=== PATIENT | male | born 1960 | race Asian ===

== ENCOUNTER 2020-05-12 10:43 | Observation (INO) | payer MEDICAID ==
--- NOTE | 2020-05-12 10:53 | ER Document Report ---
ED Medical Screen (RME) - General Chief Complaint: Numbness Stated Complaint: NUMBNESS Time Seen by Provider: 05/12/20 10:49 Mode of Arrival: Wheelchair Information source: Relative Notes: 59-year-old male presented to ED for strokelike symptoms. He has weakness and numbness to his right arm and leg. He states his pain since noon yesterday. He states it seems to be getting worse. He does not speak Malian his family is with him and translated for the stroke protocol. He states he does have a history of diabetes. He does not have any facial droop. He has minimal palmar drift but he does have trouble lifting the right leg. She also has numbness to the right arm and leg. Start stroke protocol. Is answering questions appropriately and patient's family are able to retrieve information for assessment. I have greeted and performed a rapid initial assessment of this patient. A comprehensive ED assessment and evaluation of the patient, analysis of test results and completion of medical decision making process will be conducted by an additional ED providers. - Related Data Allergies/Adverse Reactions: No Known Allergies Allergy (Verified 05/12/20 10:50)
[2020-05-12 11:34] LABS: INTERNATIONAL RATION (INR) 0.98
--- NOTE | 2020-05-12 11:36 | RADIOLOGY REPORT (SQ) ---
EXAM DESCRIPTION: CHEST SINGLE VIEW IMAGES COMPLETED DATE/TIME: 05/12/2020 11:05 am REASON FOR STUDY: stroke COMPARISON: None. EXAM PARAMETERS: NUMBER OF VIEWS: One view. TECHNIQUE: Single frontal radiographic view of the chest acquired. RADIATION DOSE: NA LIMITATIONS: None. FINDINGS: LUNGS AND PLEURA: No opacities, masses or pneumothorax. No pleural effusion. MEDIASTINUM AND HILAR STRUCTURES: No masses. Contour normal. HEART AND VASCULAR STRUCTURES: Heart normal in size. Normal vasculature. BONES: No acute findings. HARDWARE: None in the chest. OTHER: No other significant finding. IMPRESSION: NO ACUTE RADIOGRAPHIC FINDING IN THE CHEST. TECHNICAL DOCUMENTATION: JOB ID: [id number] 2010 [employer]- All Rights Reserved Reading location - IP/workstation name: [email or web address]
[2020-05-12 11:38] LABS: PROTHROMBIN TIME 13.2 SEC (11.4-15.4)
[2020-05-12 11:41] LABS: ABSOLUTE EOSINOPHILS # (AUTO) 0.1 10^3/uL (0.0-0.6); ABSOLUTE LYMPHOCYTES (AUTO) 1.4 10^3/uL (0.5-4.7); ABSOLUTE MONOCYTES (AUTO) 0.3 10^3/uL (0.1-1.4); ABSOLUTE NEUT (AUTO) 2.5 10^3/uL (1.7-8.2); BASOPHILS % (AUTO) 0.6 % (0-2); EOSINOPHILS % (AUTO) 2.1 % (0-6); HEMATOCRIT 38.1 % (37.9-51.0); LYMPHOCYTES % (AUTO) 32.4 % (13-45); MEAN CORPUSCULAR HEMOGLOBIN 29.9 pg (27.0-33.4); MEAN CORPUSCULAR HGB CONC 34.2 g/dL (32.0-36.0); MEAN CORPUSCULAR VOLUME 88 fl (80-97); MONOCYTES % (AUTO) 6.9 % (3-13); PLATELET COUNT 132 10^3/uL (150-450); RED BLOOD COUNT 4.36 10^6/uL (4.35-5.55); TOTAL CELLS COUNTED % (AUTO) 100 %; WHITE BLOOD COUNT 4.3 10^3/uL (4.0-10.5)
--- NOTE | 2020-05-12 11:43 | RADIOLOGY REPORT (SQ) ---
EXAM DESCRIPTION: CT HEAD WITHOUT IMAGES COMPLETED DATE/TIME: 05/12/2020 11:09 am REASON FOR STUDY: stroke COMPARISON: None. TECHNIQUE: Axial images acquired through the brain without intravenous contrast. Images reviewed wi th bone, brain and subdural windows. Additional sagittal and coronal reconstructions were generated. Images stored on PACS. All CT scanners at this facility use dose modulation, iterative reconstruction, and/or weight based d osing when appropriate to reduce radiation dose to as low as reasonably achievable (ALARA). [facility]: Dose Right [facility]: CareDose [facility]: Dose Right [facility]: Teradose 4D [facility]: [employer] RADIATION DOSE: CT Rad equipment meets quality standard of care and radiation dose reduction techniq ues were employed. CTDIvol: 10.3 - 22.0 mGy. DLP: 436 mGy-cm. mGy. LIMITATIONS: None. FINDINGS: VENTRICLES: Normal size and contour. CEREBRUM: No masses. No hemorrhage. No midline shift. No evidence for acute infarction. Normal gra y/white matter differentiation. No areas of low density in the white matter. CEREBELLUM: No masses. No hemorrhage. No alteration of density. No evidence for acute infarction. EXTRAAXIAL SPACES: No fluid collections. No masses. ORBITS AND GLOBE: No intra- or extraconal masses. Normal contour of globe without masses. CALVARIUM: No fracture. PARANASAL SINUSES: No fluid or mucosal thickening. SOFT TISSUES: No mass or hematoma. OTHER: No other significant finding. IMPRESSION: NORMAL BRAIN CT WITHOUT CONTRAST. EVIDENCE OF ACUTE STROKE: NO. COMMENT: Pertinent positive or negative findings of the imaging study reported as a CRITICAL EXAM shanell DELEON NP at11:36 on 05/12/2020. Category of Critical Exam: Stroke protocol. Quality ID # 436: Final reports with documentation of one or more dose reduction techniques (e.g., Au tomated exposure control, adjustment of the mA and/or kV according to patient size, use of iterative reconstruction technique) TECHNICAL DOCUMENTATION: JOB ID: [id number] 2010 [employer]- All Rights Reserved Reading location - IP/workstation name: [email or web address]
--- NOTE | 2020-05-12 11:45 | RADIOLOGY REPORT (SQ) ---
EXAM DESCRIPTION: CTA HEAD IMAGES COMPLETED DATE/TIME: 05/12/2020 11:15 am REASON FOR STUDY: STROKE ALERT COMPARISON: None. TECHNIQUE: Post IV contrast scanning, thin section axial imaging through the brain to evaluate the a rterial structures. Source and MIP images are saved and reviewed on PACS. Advanced 3D imaging as volume-rendering, MIPs, SSD performed? yes All CT scanners at this facility use dose modulation, iterative reconstruction, and/or weight based d osing when appropriate to reduce radiation dose to as low as reasonably achievable (ALARA). [facility]: Dose Right [facility]: CareDose [facility]: Dose Right [facility]: Teradose 4D [facility]: Retrophin CONTRAST TYPE AND DOSE: 70 mL Omnipaque 350- low osmolar. RENAL FUNCTION: Not performed. LIMITATIONS: None. FINDINGS: [place] OF PEREZ: The anterior, middle, posterior cerebral arteries are all patent. No ev idence of aneurysm or focal stenosis. POSTERIOR CIRCULATION: The distal vertebral arteries are patent as is the basilar artery. No aneurysm . BRAIN: No gross enhancing lesions as visualized. The superior cerebral hemispheres are not included in the field of view. BONES: Intact as visualized. SINUSES: No fluid or mucosal thickening. OTHER: No other significant finding. IMPRESSION: NO CTA EVIDENCE OF STENOSIS OR ANEURYSM OF THE TANGIRNAQ OF PEREZ. TECHNICAL DOCUMENTATION: JOB ID: [id number] Quality ID # 436: Final reports with documentation of one or more dose reduction techniques (e.g., Au tomated exposure control, adjustment of the mA and/or kV according to patient size, use of iterative reconstruction technique) 2010 [employer]- All Rights Reserved Reading location - IP/workstation name: [email or web address]
--- NOTE | 2020-05-12 11:47 | RADIOLOGY REPORT (SQ) ---
EXAM DESCRIPTION: CTA NECK IMAGES COMPLETED DATE/TIME: 05/12/2020 11:15 am REASON FOR STUDY: STROKE ALERT COMPARISON: None. TECHNIQUE: Axial dynamic scanning technique with dynamic contrast enhancement through the extra-armament aircraft mechanic nial carotid and vertebral arteries. Multiplanar reconstruction. 3-D MIPS and Volume-rendered imag es acquired at the workstation and saved to PACS. Images are reviewed in soft tissue, bone, lung w indows. All CT scanners at this facility use dose modulation, iterative reconstruction, and/or weight based d osing when appropriate to reduce radiation dose to as low as reasonably achievable (ALARA). [facility]: Dose Right [facility]: CareDose [facility]: Dose Right [facility]: Teradose 4D [facility]: [employer] RENAL FUNCTION: Not available. LIMITATIONS: None. FINDINGS: AORTIC ARCH: Normal three-vessel origin. Bilateral subclavian arteries are patent. No d issection. RIGHT CAROTIDS: Patent common, internal and external carotid arteries without suggestion of significa nt stenosis or irregular plaque. No dissection. RIGHT VERTEBRAL: Patent. No dissection. LEFT CAROTIDS: Patent common, internal and external carotid arteries without suggestion of significan t stenosis or irregular plaque. No dissection. LEFT VERTEBRAL: Patent. No dissection. OTHER: No other significant finding. OTHER: 3-D reconstructions confirm findings. IMPRESSION: NORMAL CTA OF THE EXTRA-CRANIAL CAROTID AND VERTEBRAL ARTERIES. COMMENT: Quality ID #[id number]: Measurements of distal internal carotid diameter were used as the denomina tor for stenosis measurement. TECHNICAL DOCUMENTATION: JOB ID: [id number] Quality ID # 436: Final reports with documentation of one or more dose reduction techniques (e.g., Au tomated exposure control, adjustment of the mA and/or kV according to patient size, use of iterative reconstruction technique) 2010 [employer]- All Rights Reserved Reading location - IP/workstation name: [email or web address]
[2020-05-12 11:55] LABS: ALBUMIN 3.4 g/dL (3.5-5.0); ALKALINE PHOSPHATASE 35 U/L (38-126); ANION GAP 9 (5-19); ASPARTATE AMINO TRANSFERASE 19 U/L (17-59); BILIRUBIN,TOTAL 0.8 mg/dL (0.2-1.3); BLOOD UREA NITROGEN 14 mg/dL (7-20); CALCIUM 8.6 mg/dL (8.4-10.2); CARBON DIOXIDE 25 mmol/L (22-30); CHLORIDE 99 mmol/L (98-107); CREATINE KINASE 67 U/L (55-170); GLUCOSE 186 mg/dL (75-110); POTASSIUM 3.7 mmol/L (3.6-5.0); TOTAL PROTEIN 5.8 g/dL (6.3-8.2)
[2020-05-12 12:07] LABS: CREATINE KINASE MB 0.89 ng/mL (<4.55)
[2020-05-12 12:13] LABS: TROPONIN I < 0.012 ng/mL
--- NOTE | 2020-05-12 13:14 | ER Document Report ---
ED NIH Stroke Scale - NIH Stroke Scale When completed:: Before Alteplase *: 1. NIH scale should be completed with appropriate accompanying assessment tools. *: 2. The NIH should reflect what the patient is capable of doing and should not be coached by the clinician. 1a. Level of Consciousness: 0=Alert;keenly responsive -: 1=Drowsy -: 2=Obtunded -: 3=Coma/unresponsive or reflex to noxious stimuli. 1a. Responses: 0 1b. Orientation Questions: a. What month is it? -: b. How old are you? -: 0=Answers both questions correctly. -: 1=Answers one question correctly or patient is intubated or has orotracheal trauma. -: 2=Answers neither question correctly. 1b. Responses: 0 1c. Response to commands: a. Open and close eyes? -: b. Oven Operator and release hand? -: Credit is given despite weakness. Demonstration of task is permitted. Substitute command if hands cannot be used. -: 0=Performs both tasks correctly -: 1=Performs one task correctly -: 2=Performs neither task correctly 1c. Responses: 0 2. Gaze: Establish eye contact and instruct patient to "Follow my finger" -: 0=Normal -: 1=Partial gaze palsy. Gaze is abnormal in one or both eyes, but where forced deviation or total gaze paresis is not present. -: 2=Forced deviation or total gaze paresis. 2. Responses: 0 3. Visual Lee: Sees fingers in all four quadrants. -: 0=No visual loss. -: 1=Partial hemianopsia. -: 2=Complete hemianopsia. -: 3=Bilateral hemianopsia (including Cortical blindness) 3. Responses: 0 4. Facial Movement: Instruct patient to: -: a. Show me your teeth -: b. Raise your eyebrows -: c. Close your eyes -: d. Smile -: 0=Normal symmetrical movement -: 1=Minor paralysis (flattened nasolabial fold, asymmetry on smiling). -: 2=Partial paralysis (total or near total paralysis of lower face). -: 3=Complete paralysis of upper and lower face 4. Responses: 0 5. Motor functions (left arm): Alternate sides and extend each arm with palms down (90 degrees if sitting or 45 degrees for supine). -: 0=No drift;limb holds for full 10 seconds. -: 1=Drift; limb holds but drifts down before full 10 seconds, but does not hit bed. -: 2=Some effort against gravity; limb cannot get to or maintain position. -: 3=No effort against gravity; limb falls. -: 4=No movement. -: UN=Amputation, joint fusion, explain in comments. 5. Responses (left arm): 0 5. Motor Functions (right arm): Alternate sides and extend each arm with palms down (90 degrees if sitting or 45 degrees for supine). -: 0=No drift;limb holds for full 10 seconds. -: 1=Drift; limb holds but drifts down before full 10 seconds, but does not hit bed. -: 2=Some effort against gravity; limb cannot get to or maintain position. -: 3=No effort against gravity; limb falls. -: 4=No movement. -: UN=Amputation, joint fusion, explain in comments. 5. Responses (right arm): 0 6. Motor Functions (left leg): With patient lying supine, alternate sides and extend each leg (30 degrees always while supine). -: 0=No drift, leg holds position for full 5 seconds -: 1=Drift; leg falls before full 5 seconds but does not hit bed. -: 2=Some effort against gravity, leg falls to bed but some effort against gravity. -: 3=No effort against gravity, leg falls to bed immediately. -: 4=No movement. -: UN=Amputation, joint fusion; explain in comments. 6. Responses (left leg): 0 6. Motor Functions (right leg): With patient lying supine, alternate sides and extend each leg (30 degrees always while supine). -: 0=No drift, leg holds position for full 5 seconds -: 1=Drift; leg falls before full 5 seconds but does not hit bed. -: 2=Some effort against gravity, leg falls to bed but some effort against gravity. -: 3=No effort against gravity, leg falls to bed immediately. -: 4=No movement. -: UN=Amputation, joint fusion; explain in comments. 6. Responses (right leg): 1 7. Limb Ataxia: With eyes open instruct patient to: -: a. "Touch your finger to your nose". -: b. "Touch your heel to your adams" -: 0=Absent -: 1=Present in one limb. -: 2=Present in two limbs. -: UN=Amputation or joint fusion; explain in comments. 7. Responses: 1 7. If ataxia present choose as appropriate: Right arm, Right leg 8. Sensory: Test sensation using pinprick or noxious stimuli. Test as many body parts as possible. -: 0=Normal;no sensory loss -: 1=Mile to moderate sensory loss (patient feels pin prick but is less sharp on affected side). -: 2=Severe or total sensory loss. 8. Responses: 0 9. Best Language: Instruct patient to: -: a. "Describe what you see in this picture." -: b. "Name the items in this picture." -: c. "Read these sentences." -: 0=No aphasia, normal -: 1=Mild to moderate aphasia. -: 2=Severe aphasia -: 3=Mute, global aphasia, no usable speech or auditory comprehension. 9. Responses: 0 10. Articulation, Dysarthia: Instruct patient to: -: "Read these words" or "Repeat these words" -: 0=Normal -: 1=Mild to moderate; patient may slur some words but can be understood without difficulty. -: 2=Severe; patients speech so slurred as to be unintelligible in the absence of dysphasia. -: UN=Intubated or other physical barrier, explain in comments. 10. Responses: 1 11. Extinction or inattention: 0=No abnormality -: 1= Visual, tactile, auditory, spatial, or personal inattention or extinction to bilateral simulation in one or the sensory modalities. -: 2=Profound douglas-inattention or douglas-inattention to more than one modality; does not recognize own hand. 11. Responses: 0 Total Score: 3
--- NOTE | 2020-05-12 13:16 | ER Document Report ---
ED Alteplase Inc/Exc Criteria - Inclusion Criteria: 1: Patient presented to ED within 3 hours of acute ischemic stroke symptom onset? -: No 2: Did baseline CT exclude intracranial hemorrhage and/or other risk factors? 3: Is the age of the patient 18 years of age or greater? : If any of the above questions are answered "NO" then stop, patient is not a candidate for Alteplase, : If all of the above questions are answered "YES" then continue with Exclusion Criteria. - Exclusion Criteria: 1: Is there evidence of intracranial hemorrhage on baseline CT? -: No 2: Is there suspicion of subarachnoid hemorrhage (even if CT negative)? -: No 3: Is there a history of serious head trauma, recent previous stroke or PR within 3 months? -: No 4: Does the patient have a clinical presentation consistent with PR or post-PR pericarditis? -: No 5: Is there history of intracranial hemorrhage? -: No 6: On repeated measurement is Systolic BP greater than 185mmHg or Diastolic BP greater that 110 mmHg and is aggressive treatment needed to reduce blood pressure to these limits (e.g. constant infusion of an anti-hypertensive)? -: No 7: Did the patient awake with stroke symptoms? -: No 8: Has the patient had a lumbar puncture or an arterial puncture at a non- compressile site within 7 days? -: No 9: With in the last 14 days did the patient have surgery or major trauma? -: No 10: Is the patient or less than 2 weeks? -: No 11: Was there any active bleeding or acute trauma? -: No 12: Does the patient have intracranial neoplasm, arteriovenous malformation or aneurysm? -: No 13: Does the patient have abnormal glucose (less than 50 or greater than 400mg/dl)? Record glucose in Comment. -: No 14: Patient has rapidly improving symptoms at the time Alteplase is to be Administered. -: No 15: Does the patient have any risks for bleeding, including but not limited to: a.: Current use of Coumadin with PT greater than 15 seconds or INR greater than 1.7. b.: Current use of Pradaxa (Dabigatran). c.: Heparin administereed within the past 48 hours and PTT elevated. d.: Platelet count less than 100,000/mm. e.: Major surgery or serious trauma within 14 days. f.: Gastrointestinal or gynecological urinary bleeding within 14 days. g.: Myocardial Infarction (PR) within 3 months. -: No : If the answer to any of the above questions is "YES" then stop, the patient is not a candidate for Alteplase. : If the answer to all of the above questions is "NO" then the patient may be eligible for the Administration of Alteplase. : If the patient is noted to have seizure activity at onset of Stroke symptoms; Consult Neurologist for further evaluation. - The patient is: -: Included and is eligible to receive Alteplase. *Initiate bed placement at higher level of care* --: No Reviewed risks & benefits of thrombolytic therapy: I have reviewed the risks and benefits of thrombolytic therapy with the patient and/or his/her family. -: Excluded and not eligible to receive Alteplase for the above exclusions. --: Yes - 23hrs from onset -: Excluded and not eligible to receive Alteplase for other reasons (specify in comments): - Diagnosis of TIA: -: Patient presented with transient symptoms that are now resolved and no other neurologic findings are currently present. List symptoms in comments. -: Patient is NOT a candidate for tPA. -: Yes -: ____(put name in comment) has been consulted for admission and continued evaluation of risk factor assessment.
[2020-05-12] MEDS ORDERED: ASPIRIN 325 MG TABLET PO ONE (13:18)
--- NOTE | 2020-05-12 13:37 | ER Document Report ---
ED General - General Chief Complaint: S/S of Possible Stroke Stated Complaint: NUMBNESS Time Seen by Provider: 05/12/20 10:49 Mode of Arrival: Wheelchair Information source: Patient, Relative, Friend - [facility] Notes: Patient presents with right-sided weakness. According to family this weakness started yesterday while he was cooking. It started approximately 12:00 noon. It has been persistent until today. He states he is visiting here from [facility]. He called his [facility] who informed him that this sounded like a stroke and he need to come to the emergency department. Patient states he has a history of diabetes but no other medical problems. No previous history of any types of stroke or TIAs. He states that his entire right side including his right face feel weak. He denies any numbness or alterations of sensation. No trouble swallowing. Family states they do feel that his speech is slightly "slurred". Patient speaks only Mongolian so this is hard for me to ascertain. Patient has had no recent trauma no vomiting. He denies any pain at this time. Patient denies any vision changes. Family states they have not noticed any confusion. - Related Data Allergies/Adverse Reactions: No Known Allergies Allergy (Verified 05/12/20 10:50) Home Medications: dm Past Medical History - General Information source: Patient, Relative, Friend - Social History Smoking Status: Never Smoker Chew tobacco use (# tins/day): No Frequency of alcohol use: Occasional Drug Abuse: None Family History: Reviewed & Not Pertinent Patient has homicidal ideation: No Review of Systems - Review of Systems Constitutional: denies: Chills, Fever Cardiovascular: denies: Chest pain, Palpitations Respiratory: denies: Cough, Short of breath -: Yes All other systems reviewed and negative Physical Exam - Vital signs Vitals: Temp 97.2 F 05/12/20 10:51 Interpretation: Normal - General General appearance: Appears well, Alert - HEENT Head: Normocephalic, Atraumatic Eyes: Normal Pupils: PERRL - Respiratory Respiratory status: No respiratory distress Chest status: Nontender Breath sounds: Normal Chest palpation: Normal - Cardiovascular Rhythm: Regular Heart sounds: Normal auscultation Murmur: No - Abdominal Inspection: Normal Distension: No distension Bowel sounds: Normal Tenderness: Nontender Organomegaly: No organomegaly - Back Back: Normal, Nontender - Extremities General upper extremity: Normal inspection, Nontender, Normal color, Normal ROM, Normal temperature General lower extremity: Normal inspection, Nontender, Normal color, Normal ROM, Normal temperature, Normal weight bearing. No: Payal's sign - Neurological Neuro grossly intact: Yes Cognition: Normal Orientation: AAOx4 Dupont Coma Scale Eye Opening: Spontaneous Dupont Coma Scale Verbal: Oriented Dupont Coma Scale Motor: Obeys Commands Nadeen Coma Scale Total: 15 Cerebellar coordination: Gait ataxia, Other - Patient seems slightly uncoordinated with [id number] on the right. Patient is also unable to stand on his right leg without support. He can stand on his left leg without support. Patient [id number] is also ataxic on the right. Patient's gait is also ataxic. Motor strength normal: LUE, RUE, LLE, RLE Additional motor exam normals: Equal cylinder inspector. No: Pronator drift Sensory: Normal - Psychological Associated symptoms: Normal affect, Normal mood - Skin Skin Temperature: Warm Skin Moisture: Dry Skin Color: Normal Course - Re-evaluation Re-evalutation: 05/12/20 13:47 Patient presents complaint of weakness on the right side. The main deficits appear to be cerebellar at this time. CT and CTAs are normal. EKG is normal. Laboratories are not significantly remarkable. Patient is outside of the window for any type of intervention. - Vital Signs Vital signs: Temp Pulse Resp BP Pulse Ox 97.6 F 76 27 H 135/96 H 100 05/12/20 11:43 05/12/20 12:00 05/12/20 13:01 05/12/20 13:01 05/12/20 13:01 - Laboratory Result Diagrams: 05/12/20 11:15 05/12/20 11:15 Laboratory results interpreted by me: 05/12/20 05/12/20 11:15 11:15 Hgb 13.0 L Plt Count 132 L Sodium 132.8 L Glucose 186 H Alkaline Phosphatase 35 L Total Protein 5.8 L Albumin 3.4 L - Diagnostic Test Radiology reviewed: Image reviewed, Reports reviewed - EKG Interpretation by Me EKG shows normal: Sinus rhythm Rate: Tachycardia - 71 Rhythm: NSR [place]/QRS: No: Right axis deviation, Left axis deviation Discharge - Discharge Clinical Impression: CVA (cerebral vascular accident) Qualifiers: CVA mechanism: unspecified Qualified Code(s): I63.9 - Cerebral infarction, unsp ecified Condition: Serious Disposition: ADMITTED INPATIENT Admitting Provider: Ligia (Hospitalist) Unit Admitted: [facility]
[2020-05-12] MEDS ORDERED: PROMETHAZINE HCL INJ 25 MG/1 ML VIAL IV PRN (16:39)
[2020-05-12] MEDS ORDERED: ONDANSETRON HCL INJ/PF 4 MG/2 ML SDV IV PRN (16:39)
[2020-05-12] MEDS ORDERED: TEMAZEPAM 7.5 MG CAPSULE PO PRN (16:39)
[2020-05-12] MEDS ORDERED: OXYCODONE-ACETAMINOPHEN 5-325 MG TABLET PO PRN (16:39)
[2020-05-12] MEDS ORDERED: IPRATROPIUM/ALBUTEROL 0.5-2.5 MG/3 ML AMPUL NEB PRN (16:39)
[2020-05-12] MEDS ORDERED: ACETAMINOPHEN 325 MG TABLET PO PRN (16:39)
[2020-05-12 17:17] LABS: CHOLESTEROL 128.72 mg/dL (0-200); TRIGLYCERIDES 100 mg/dL (<150)
[2020-05-12 17:28] LABS: DIRECT LDL 86 mg/dL (<100)
--- NOTE | 2020-05-12 18:08 | EKG REPORT ---
SEVERITY:- NORMAL ECG - SINUS RHYTHM : Confirmed by: Bunny Curtis 12-May-2020 18:07:57
--- NOTE | 2020-05-12 18:09 | PDOC H&P ---
History of Present Illness Admission Date/PCP: 05/12/20 14:25 History of Present Illness: RANDY AJ is a 59 year old male past medical history of diabetes brought to ED by family after noted to have right-sided weakness starting yesterday 12 noon while cooking, patient does not speak Hebrew but as per her daughter who is present in the room patient was noted to have entire right-sided weakness and right facial weakness, this lasted about 30 minutes, patient did not pass out or had any alteration of mental status, patient was noted to have slight slurred speech, this recurred 2 more times since yesterday, contacted his PCP and advised to come to ED. On my encounter patient's symptoms have resolved and as per patient and family patient is back to baseline. Patient denies any lightheadedness, any headache, vision changes, focal neurological symptoms, chest pain, shortness of breath, nausea, vomiting, diarrhea, constipation or any urinary symptoms. ED a CT/CTA head did not show any acute abnormalities. EKG is sinus rhythm. Troponins are WNL. Patient not a candidate for thrombolytic therapy per ED physician evaluation. Specialist consulted for admission. Social History Smoking Status: Never Smoker Electronic Cigarette use?: No Family History Family History: Reviewed & Not Pertinent Parental Family History Reviewed: Yes Children Family History Reviewed: Yes Sibling(s) Family History Reviewed.: Yes Medication/Allergy Allergies/Adverse Reactions: No Known Allergies Allergy (Verified 05/12/20 10:50) Review of Systems Review of Systems: as per hpi Physical Exam Vital Signs: Temp Pulse Resp BP Pulse Ox 97.6 F 63 16 135/96 H 100 05/12/20 11:43 05/12/20 15:00 05/12/20 15:00 05/12/20 15:00 05/12/20 15:00 Intake & Output 05/11/20 05/12/20 05/13/20 06:59 06:59 06:59 Weight 62.596 kg General appearance: PRESENT: no acute distress, well-developed, well-nourished Head exam: PRESENT: atraumatic, normocephalic Respiratory exam: PRESENT: clear to auscultation alex. ABSENT: rales, rhonchi, wheezes Cardiovascular exam: PRESENT: RRR. ABSENT: diastolic murmur, rubs, systolic murmur GI/Abdominal exam: PRESENT: normal bowel sounds, soft. ABSENT: distended, guarding, mass, organolmegaly, rebound, tenderness Extremities exam: PRESENT: full ROM. ABSENT: calf tenderness, clubbing, pedal edema Neurological exam: PRESENT: alert, awake, oriented to person, oriented to place, oriented to time, oriented to situation, CN II-XII grossly intact. ABSENT: motor sensory deficit Results Laboratory Results: 05/12/20 11:15 05/12/20 11:15 05/12/20 05/12/20 05/12/20 11:15 11:15 11:15 WBC 4.3 RBC 4.36 Hgb 13.0 L Hct 38.1 MCV 88 MCH 29.9 MCHC 34.2 RDW 13.0 Plt Count 132 L Seg Neutrophils % 58.0 Sodium 132.8 L Potassium 3.7 Chloride 99 Carbon Dioxide 25 Anion Gap 9 BUN 14 Creatinine 0.73 Est GFR ( Amer) > 60 Glucose 186 H Calcium 8.6 Total Bilirubin 0.8 AST 19 Alkaline Phosphatase 35 L Total Protein 5.8 L Albumin 3.4 L Triglycerides 100 Cholesterol 128.72 LDL Cholesterol Direct 86 VLDL Cholesterol 20.0 HDL Cholesterol 33 L 05/12/20 05/12/20 11:15 11:15 Creatine Kinase 67 CK-MB (CK-2) 0.89 Troponin I < 0.012 Impressions: Head CTA 05/12/20 00:00 IMPRESSION: NO CTA EVIDENCE OF STENOSIS OR ANEURYSM OF THE [place]. Neck CTA 05/12/20 00:00 IMPRESSION: NORMAL CTA OF THE EXTRA-CRANIAL CAROTID AND VERTEBRAL ARTERIES. Chest X-Ray 05/12/20 10:49 IMPRESSION: NO ACUTE RADIOGRAPHIC FINDING IN THE CHEST. Head CT 05/12/20 10:49 IMPRESSION: NORMAL BRAIN CT WITHOUT CONTRAST. EVIDENCE OF ACUTE STROKE: NO. Assessment and Plan - Diagnosis (1) TIA (transient ischemic attack) Is this a current diagnosis for this admission?: Yes Plan: Given history of dyslipidemia and diabetes patient high risk of CVAs in the future. CT/CTA head negative. EKG no acute changes. Troponins negative. Admit to IMC, neurochecks, statins, MRI brain. PT/OT/ST. (2) Dyslipidemia Is this a current diagnosis for this admission?: Yes Plan: ASCVD risk score of 14%. High intensity statin indicated. We will start on atorvastatin 40 mg nightly. Monitor liver function. Diet and lifestyle modification recommended. (3) Diabetes Is this a current diagnosis for this admission?: Yes Plan: Trolled. Hemoglobin A1c 5.8. Resume home meds. Sliding scale insulin. Diabetic diet, Accu-Chek, hypoglycemia protocol. Resume home meds upon discharge. Outpatient PCP follow-up. - Time Time Spent with patient: 35 or more minutes Medications reviewed and adjusted accordingly: Yes Anticipated Discharge Disposition: Home, Self Care Anticipated Discharge Timeframe: within 24 hours
[2020-05-12] MEDS ORDERED: LABETALOL HCL INJ 20 MG/4 ML DISP.SYRIN IV PRN (18:10)
--- NOTE | 2020-05-12 19:24 | RADIOLOGY REPORT (SQ) ---
EXAM DESCRIPTION: MRI HEAD WITHOUT IMAGES COMPLETED DATE/TIME: 05/12/2020 7:09 pm REASON FOR STUDY: Rt Sided Weakness COMPARISON: None. TECHNIQUE: Multiplanar imaging includes non-contrasted T1, T2, FLAIR, and Diffusion with ADC map seq uences. Images stored on PACS. LIMITATIONS: None. FINDINGS: ANATOMY: No anomalies. Normal vascular flow voids. Pituitary fossa normal. CSF SPACES: Normal in size and contour. No hemorrhage. CEREBRUM: A few high-signal intensity lesions scattered throughout the white matter on FLAIR imaging with distribution suggesting chronic micro-vascular ischemic change. Sulci and gyri normal in size a nd contour. No evidence of hemorrhage, mass or extraaxial fluid collection. POSTERIOR FOSSA: No signal alteration. No hemorrhage. No edema, masses or mass effect. Internal ashok tory canals, cerebello-pontine angles, mastoids normal. DIFFUSION: Focal restricted diffusion left basal ganglia. ORBITS: No masses. Globes normal. PARANASAL SINUSES: No fluid levels. Mucosa normal. OTHER: No other significant finding. IMPRESSION: Focal restricted diffusion left basal ganglia. Mild microvascular ischemia. EVIDENCE OF ACUTE STROKE: YES. LEFT MCA. COMMENT: The findings were sent to the Radiology Results Communication Center at 19:19 on 0 to be communicated to a licensed caregiver. TECHNICAL DOCUMENTATION: JOB ID: [id number] 2010 [employer]- All Rights Reserved Reading location - IP/workstation name: [email or web address]
[2020-05-12] MEDS ORDERED: ATORVASTATIN CALCIUM 40 MG TABLET PO SCH (22:00)
[2020-05-12] MEDS: HEPARIN SOD (PORCINE) 5,000 UNIT/ML 1 ML VIAL SUBCUT SCH (23:25)
[2020-05-12] MEDS: FAMOTIDINE 20 MG TABLET PO SCH (23:25)
[2020-05-13] MEDS: HEPARIN SOD (PORCINE) 5,000 UNIT/ML 1 ML VIAL SUBCUT SCH ×2 (05:30→16:38)
[2020-05-13 07:35] LABS: ALBUMIN 4.1 g/dL (3.5-5.0); ALKALINE PHOSPHATASE 46 U/L (38-126); ANION GAP 10 (5-19); ASPARTATE AMINO TRANSFERASE 22 U/L (17-59); BILIRUBIN,TOTAL 1.1 mg/dL (0.2-1.3); BLOOD UREA NITROGEN 17 mg/dL (7-20); CALCIUM 9.5 mg/dL (8.4-10.2); CARBON DIOXIDE 26 mmol/L (22-30); CHLORIDE 102 mmol/L (98-107); GLUCOSE 102 mg/dL (75-110); POTASSIUM 4.2 mmol/L (3.6-5.0); TOTAL PROTEIN 7.1 g/dL (6.3-8.2)
[2020-05-13 08:35] LABS: ABSOLUTE EOSINOPHILS # (AUTO) 0.1 10^3/uL (0.0-0.6); ABSOLUTE LYMPHOCYTES (AUTO) 1.3 10^3/uL (0.5-4.7); ABSOLUTE MONOCYTES (AUTO) 0.3 10^3/uL (0.1-1.4); ABSOLUTE NEUT (AUTO) 2.8 10^3/uL (1.7-8.2); BASOPHILS % (AUTO) 0.7 % (0-2); EOSINOPHILS % (AUTO) 2.1 % (0-6); LYMPHOCYTES % (AUTO) 28.9 % (13-45); MEAN CORPUSCULAR HEMOGLOBIN 29.7 pg (27.0-33.4); MEAN CORPUSCULAR HGB CONC 34.1 g/dL (32.0-36.0); MEAN CORPUSCULAR VOLUME 87 fl (80-97); MONOCYTES % (AUTO) 7.5 % (3-13); PLATELET COUNT 153 10^3/uL (150-450); RED BLOOD COUNT 5.04 10^6/uL (4.35-5.55); RED CELL DISTRIBUTION WIDTH 12.8 % (11.5-14.0); SEGMENTED NEUTROPHILS % (AUTO) 60.8 % (42-78); TOTAL CELLS COUNTED % (AUTO) 100 %; WHITE BLOOD COUNT 4.5 10^3/uL (4.0-10.5)
[2020-05-13] MEDS ORDERED: ENALAPRIL MALEATE 2.5 MG TABLET PO SCH (10:00)
[2020-05-13] MEDS ORDERED: ASPIRIN 81 MG TABLET, CHEWABLE PO SCH (10:00)
[2020-05-13] MEDS ORDERED: DOCUSATE SODIUM 100 MG CAPSULE PO SCH (10:00)
[2020-05-13] MEDS: FAMOTIDINE 20 MG TABLET PO SCH (12:27)
[2020-05-13 16:07] VITALS: BP 135/87
--- NOTE | 2020-05-16 08:36 | PDOC DISCHARGE SUMMARY ---
Impression - Admit/DC Date/PCP Admission Date/Primary Care Provider: 05/12/20 14:25 Discharge Date: 05/13/20 - Discharge Diagnosis (1) CVA (cerebral vascular accident) Is this a current diagnosis for this admission?: Yes (2) TIA (transient ischemic attack) Is this a current diagnosis for this admission?: Yes (3) Dyslipidemia Is this a current diagnosis for this admission?: Yes (4) Diabetes Is this a current diagnosis for this admission?: Yes - Additional Information Discharge Diet: Regular Discharge Activity: Activity As Tolerated Prescriptions: Aspirin [Aspirin 81 mg Chewable Tablet] 81 mg PO DAILY 30 Days #30 tab.chew Atorvastatin Calcium [Lipitor 40 mg Tablet] 40 mg PO QHS 30 Days #30 tablet Enalapril Maleate [Vasotec 2.5 mg Tablet] 2.5 mg PO DAILY 30 Days #30 tablet Home Medications: Aspirin [Aspirin 81 mg Chewable Tablet] 81 mg PO DAILY 30 Days #30 tab.chew 05/13/20 Atorvastatin Calcium [Lipitor 40 mg Tablet] 40 mg PO QHS 30 Days #30 tablet 06/20 Calcium Carbonate/Vitamin D3 [Calcium 500-Vit D3 200 Tablet] 1 tab PO DAILY 05/13/20 Enalapril Maleate [Vasotec 2.5 mg Tablet] 2.5 mg PO DAILY 30 Days #30 tablet 05/13/20 Ergocalciferol (Vitamin D2) [Drisdol 50,000 unit (1.25MG) Capsule] 50,000 unit PO TU@1000 05/13/20 Metformin HCl [Glucophage 500 mg Tablet] 500 mg PO BID 05/13/20 History of Present Illiness History of Present Illness: RANDY AJ is a 59 year old male past medical history of diabetes brought to ED by family after noted to have right-sided weakness starting yesterday 12 noon while cooking, patient does not speak Spanish but as per her daughter who is present in the room patient was noted to have entire right-sided weakness and right facial weakness, this lasted about 30 minutes, patient did not pass out or had any alteration of mental status, patient was noted to have slight slurred speech, this recurred 2 more times since yesterday, contacted his PCP and advise d to come to ED. On my encounter patient's symptoms have resolved and as per patient and family patient is back to baseline. Patient denies any lightheadedness, any headache, vision changes, focal neurological symptoms, chest pain, shortness of breath, nausea, vomiting, diarrhea, constipation or any urinary symptoms. ED a CT/CTA head did not show any acute abnormalities. EKG is sinus rhythm. T roponins are WNL. Patient not a candidate for thrombolytic therapy per ED physician evaluation. Specialist consulted for admission. Hospital Course Hospital Course: (1) CVA (cerebral vascular accident) Left MCA acute stroke. MRI brain positive for focal restricted diffusion left basal ganglia. Mild microvascular ischemia. CT/CTA head negative. EKG no acute changes. Troponins negative. PT OT consulted. No acute rehab recommended. Patient p.o. tolerant, denied any focal neurological deficits, ambulatory, normal bowel and bladder movements at time of discharge. PT was discharged home on statins, JOSSIE aspirin. PT was counseled on medication adherence and diabetes and dyslipidemia management. (2) TIA (transient ischemic attack) Initially thought to be TIA, also still had resolved during hospitalization. MRI head came back positive for a left MCA acute stroke. Plan as per #1. (2) Dyslipidemia ASCVD risk score of 14%. High intensity statin indicated. Was started on atorvastatin 40 mg nightly. Diet and lifestyle modification recommended. Advised to follow-up with PCP for monitoring of his LFTs. (3) Diabetes Controlled. Hemoglobin A1c 5.8. Resumed home meds. Sliding scale insulin. Diabetic diet, Accu-Chek, hypoglycemia protocol. Advised to resume home meds upon discharge. Outpatient PCP follow-up. Physical Exam Vital Signs: Temp Pulse Resp BP Pulse Ox 98.4 F 58 L 16 135/87 H 88 L 05/13/20 15:42 05/13/20 15:42 05/13/20 15:42 05/13/20 15:21 05/13/20 15:42 General appearance: PRESENT: no acute distress, well-developed, well-nourished Head exam: PRESENT: atraumatic, normocephalic Respiratory exam: PRESENT: clear to auscultation alex. ABSENT: rales, rhonchi, wheezes GI/Abdominal exam: PRESENT: normal bowel sounds, soft. ABSENT: distended, guarding, mass, organolmegaly, rebound, tenderness Neurological exam: PRESENT: alert, awake, oriented to person, oriented to place, oriented to time, oriented to situation, CN II-XII grossly intact. ABSENT: motor sensory deficit Skin exam: PRESENT: dry, intact, warm. ABSENT: cyanosis, rash Results Laboratory Results: WBC 4.5 10^3/uL (4.0-10.5) 05/13/20 07:40 RBC 5.04 10^6/uL (4.35-5.55) 05/13/20 07:40 Hgb 15.0 g/dL (13.5-17.0) 05/13/20 07:40 Hct 44.0 % (37.9-51.0) 05/13/20 07:40 MCV 87 fl (80-97) 05/13/20 07:40 MCH 29.7 pg (27.0-33.4) 05/13/20 07:40 MCHC 34.1 g/dL (32.0-36.0) 05/13/20 07:40 RDW 12.8 % (11.5-14.0) 05/13/20 07:40 Plt Count 153 10^3/uL (150-450) 05/13/20 07:40 Lymph % (Auto) 28.9 % (13-45) 05/13/20 07:40 [place] % (Auto) 7.5 % (3-13) 05/13/20 07:40 Eos % (Auto) 2.1 % (0-6) 05/13/20 07:40 Baso % (Auto) 0.7 % (0-2) 05/13/20 07:40 Absolute Neuts (auto) 2.8 10^3/uL (1.7-8.2) 05/13/20 07:40 Absolute Lymphs (auto) 1.3 10^3/uL (0.5-4.7) 05/13/20 07:40 Absolute Monos (auto) 0.3 10^3/uL (0.1-1.4) 05/13/20 07:40 Absolute Eos (auto) 0.1 10^3/uL (0.0-0.6) 05/13/20 07:40 Absolute Basos (auto) 0.0 10^3/uL (0.0-0.2) 05/13/20 07:40 Seg Neutrophils % 60.8 % (42-78) 05/13/20 07:40 Platelet Estimate Cancelled 05/13/20 06:40 PT 13.2 SEC (11.4-15.4) 05/12/20 11:15 INR 0.98 05/12/20 11:15 APTT 35.0 SEC (23.5-35.8) 05/12/20 11:15 Sodium 138.2 mmol/L (137-145) 05/13/20 06:40 Potassium 4.2 mmol/L (3.6-5.0) 05/13/20 06:40 Chloride 102 mmol/L (98-107) 05/13/20 06:40 Carbon Dioxide 26 mmol/L (22-30) 05/13/20 06:40 Anion Gap 10 (5-19) 05/13/20 06:40 BUN 17 mg/dL (7-20) 05/13/20 06:40 Creatinine 0.87 mg/dL (0.52-1.25) 05/13/20 06:40 Est GFR ( Amer) > 60 (>60) 05/13/20 06:40 Est GFR (MDRD) Non-Af > 60 (>60) 05/13/20 06:40 Glucose 102 mg/dL (75-110) 05/13/20 06:40 Hemoglobin A1c % 5.8 % (4.7-6.0) 05/12/20 11:15 Calcium 9.5 mg/dL (8.4-10.2) 05/13/20 06:40 Magnesium 2.2 mg/dL (1.6-2.3) 05/13/20 06:40 Total Bilirubin 1.1 mg/dL (0.2-1.3) 05/13/20 06:40 Direct Bilirubin 0.0 mg/dL (0.0-0.4) 05/13/20 06:40 Neonat Total Bilirubin Not Reportable 05/13/20 06:40 Neonat Direct Bilirubin Not Reportable 05/13/20 06:40 Neonat Indirect Bili Not Reportable 05/13/20 06:40 AST 22 U/L (17-59) 05/13/20 06:40 ALT 19 U/L (<50) 05/13/20 06:40 Alkaline Phosphatase 46 U/L (38-126) 05/13/20 06:40 Creatine Kinase 67 U/L (55-170) 05/12/20 11:15 CK-MB (CK-2) 0.89 ng/mL (<4.55) 05/12/20 11:15 Troponin I < 0.012 ng/mL 05/12/20 11:15 Total Protein 7.1 g/dL (6.3-8.2) 05/13/20 06:40 Albumin 4.1 g/dL (3.5-5.0) 05/13/20 06:40 Triglycerides 100 mg/dL (<150) 05/12/20 11:15 Cholesterol 128.72 mg/dL (0-200) 05/12/20 11:15 LDL Cholesterol Direct 86 mg/dL (<100) 05/12/20 11:15 VLDL Cholesterol 20.0 mg/dL (10-31) 05/12/20 11:15 HDL Cholesterol 33 mg/dL (>40) L 05/12/20 11:15 Slides for Path Review Cancelled 05/13/20 06:40 05/12/20 11:15 CK-MB (CK-2) 0.89 Troponin I < 0.012 Impressions: Head CTA 05/12/20 00:00 IMPRESSION: NO CTA EVIDENCE OF STENOSIS OR ANEURYSM OF THE [place] OF [place]. Head MRI 05/12/20 00:00 IMPRESSION: Focal restricted diffusion left basal ganglia. Mild microvascular ischemia. EVIDENCE OF ACUTE STROKE: YES. LEFT MCA. Neck CTA 05/12/20 00:00 IMPRESSION: NORMAL CTA OF THE EXTRA-CRANIAL CAROTID AND VERTEBRAL ARTERIES. Chest X-Ray 05/12/20 10:49 IMPRESSION: NO ACUTE RADIOGRAPHIC FINDING IN THE CHEST. Head CT 05/12/20 10:49 IMPRESSION: NORMAL BRAIN CT WITHOUT CONTRAST. EVIDENCE OF ACUTE STROKE: NO. Stroke Is this a Stroke Patient?: No Acute Heart Failure Is this a Heart Failure Patient?: No
== END 2020-05-13 16:40 | disposition home or self-care (01) ==
LOC: ER 10:43 → EH 14:25 → INTOOBSV 14:25 → 5 23:54
PROVIDERS: ADMIT Internal Medicine; ATTEND Internal Medicine
DX: I63.89 Other cerebral infarction (principal); G81.91 Hemiplegia, unspecified affecting right dominant side; R47.81 Slurred speech; E78.5 Hyperlipidemia, unspecified; R26.0 Ataxic gait; E11.9 Type 2 diabetes mellitus without complications; R00.0 Tachycardia, unspecified; Z79.82 Long term (current) use of aspirin; Z79.899 Other long term (current) drug therapy
CPT/HCPCS: 93005; 99285; 36415 ×2; 82553; 82550; 83735; 85025 ×2; 85610; 85730; 80053 ×2; 84484; 83036; 80061; 70551; 71045; 70450; 70496; 70498; 93010; 97116; 97162; 97535; 97165; G0378 ×2; J3490; J1644